=== PATIENT | female | born 1955 | race Two or more races ===

== ENCOUNTER 2024-01-15 13:22 | Inpatient (IN) | payer MEDICARE ==
[~2024-01-15] VITALS: Ht 157.5 cm; Wt 48.1 kg
[2024-01-15] MEDS ORDERED: FENTANYL PF 100MCG/2ML AMPUL ONE (13:54)
[2024-01-15] MEDS: FENTANYL PF 100MCG/2ML AMPUL IV ONE (13:57)
[2024-01-15 14:04] LABS: BASOPHILS % (AUTO) 0.3 % (0.0-2.0); EOSINOPHILS # (AUTO) 0.1 K/uL (0.0-0.7); EOSINOPHILS % (AUTO) 0.7 % (0.0-6.0); HEMATOCRIT 35 % (33-45); LYMPHOCYTES # (AUTO) 3.6 K/uL (0.8-4.8); LYMPHOCYTES % (AUTO) 33.5 % (20.0-44.0); MEAN CORPUSCULAR HEMOGLOBIN 32 PG (26.0-33.0); MEAN CORPUSCULAR HGB CONC 34 g/dl (31.0-36.0); MEAN CORPUSCULAR VOLUME 94 fL (82-100); MONOCYTES # (AUTO) 0.6 K/uL (0.1-1.30); MONOCYTES % (AUTO) 5.6 % (2.0-12.0); NEUTROPHILS # (AUTO) 6.4 K/uL (1.8-8.9); NEUTROPHILS % (AUTO) 59.9 % (43.0-81.0); PLATELET COUNT (AUTO) 276 K/uL (150-450); RED BLOOD CELL COUNT(AUTO) 3.77 MIL/uL (4.0-5.2); RED CELL DISTRIBUTION WIDTH 13.3 % (11.5-15.0); WHITE BLOOD COUNT (AUTO) 10.8 K/uL (4.3-11.0)
[2024-01-15 14:18] LABS: CALCIUM, SERUM 8.2 mg/dL (8.5-10.1); CARBON DIOXIDE 25 mmol/L (21-32); CHLORIDE 98 mmol/L (98-107); CREATININE 0.5 mg/dL (0.6-1.3); GLUCOSE 135 mg/dL (74-106); POTASSIUM 3.5 mmol/L (3.5-5.1); SODIUM SERUM 134 mmol/L (136-145); UREA NITROGEN, BLOOD 11 mg/dL (7-18)
[2024-01-15 14:23] LABS: INR 1.06 (0.91-1.10); PARTIAL THROMBOPLASTIN TIME 22.9 SEC (24.3-34.3); PROTHROMBIN TIME 11.2 SECS (9.2-11.1)
[2024-01-15] MEDS ORDERED: CALC-1143 PO (14:27)
[2024-01-15] MEDS ORDERED: NEBI2.5T5 PO (14:27)
[2024-01-15] MEDS ORDERED: MAGN500T2 PO (14:27)
[2024-01-15] MEDS ORDERED: MULT-594 PO (14:27)
[2024-01-15] MEDS ORDERED: ASPI-1169 PO (14:27)
[2024-01-15] MEDS ORDERED: ANAS1TAB50 NG (14:27)
[2024-01-15] MEDS ORDERED: LORA-259 PO (14:27)
[2024-01-15] MEDS ORDERED: THIA100T70 PO (14:27)
[2024-01-15] MEDS ORDERED: DENO60DI SQ (14:27)
[2024-01-15] MEDS ORDERED: ESCI10TA PO (14:27)
[2024-01-15] MEDS ORDERED: FISH1CAP PO (14:28)
[2024-01-15] MEDS ORDERED: CETI-194 PO (14:28)
[2024-01-15] MEDS ORDERED: VIVISCAL PO (14:28)
[2024-01-15] MEDS ORDERED: MELA5TAB PO (14:28)
[2024-01-15] MEDS ORDERED: METH500T4 PO (14:28)
[2024-01-15] MEDS ORDERED: CRAN200C5 PO (14:28)
[2024-01-15] MEDS ORDERED: ONDANSETRON HCL/PF 4 MG/2 ML VIAL ONE ×3 (14:46→16:50)
[2024-01-15] MEDS: ONDANSETRON HCL/PF - ER 4 MG/2 ML VIAL IV ONE ×3 (15:00→16:52)
[2024-01-15] MEDS ORDERED: MORPHINE SULFATE INJ 4 MG/ML DISP.SYRIN ONE (15:20)
[2024-01-15] MEDS: MORPHINE SULFATE INJ 2 MG/ML DISP.SYRIN IV ONE (15:28)
[2024-01-15] MEDS ORDERED: ACETAMINOPHEN 325 MG TABLET PO PRN (18:00)
[2024-01-15] MEDS ORDERED: MAGNESIUM HYDROXIDE 30 ML UDC PO PRN (18:00)
[2024-01-15] MEDS ORDERED: Z GUARD REMEDY 4 OZ OINT TP PRN (18:00)
[2024-01-15 18:15] VITALS: BP 138/63; TEMP 97.7; O2SAT 100
[2024-01-15] MEDS: IV NS 0.9% 1,000 ML IV PRN (19:54)
[2024-01-15 20:00] VITALS: BP 135/67; TEMP 97.9; O2SAT 100
[2024-01-15] MEDS: ONDANSETRON HCL/PF 4 MG/2 ML VIAL IVP PRN (21:59)
[2024-01-15] MEDS: HYDROMORPHONE 1 MG/1 ML DISP.SYRIN IV PRN (22:00)
[2024-01-16 03:00] VITALS: BP 118/67; TEMP 98; O2SAT 100
[2024-01-16 07:19] LABS: BASOPHILS % (AUTO) 0.1 % (0.0-2.0); HEMATOCRIT 35 % (33-45); HEMOGLOBIN 11.7 g/dL (11.5-14.8); LYMPHOCYTES # (AUTO) 1.1 K/uL (0.8-4.8); LYMPHOCYTES % (AUTO) 10.5 % (20.0-44.0); MEAN CORPUSCULAR HEMOGLOBIN 32 PG (26.0-33.0); MEAN CORPUSCULAR HGB CONC 34 g/dl (31.0-36.0); MEAN CORPUSCULAR VOLUME 94 fL (82-100); MONOCYTES # (AUTO) 0.7 K/uL (0.1-1.30); MONOCYTES % (AUTO) 6.8 % (2.0-12.0); NEUTROPHILS # (AUTO) 8.9 K/uL (1.8-8.9); NEUTROPHILS % (AUTO) 82.6 % (43.0-81.0); PLATELET COUNT (AUTO) 262 K/uL (150-450); RED BLOOD CELL COUNT(AUTO) 3.67 MIL/uL (4.0-5.2); RED CELL DISTRIBUTION WIDTH 13.1 % (11.5-15.0); WHITE BLOOD COUNT (AUTO) 10.8 K/uL (4.3-11.0)
[2024-01-16 07:22] LABS: CALCIUM, SERUM 8.3 mg/dL (8.5-10.1); CARBON DIOXIDE 20 mmol/L (21-32); CHLORIDE 101 mmol/L (98-107); CHOLESTEROL 205 mg/dL (<200); CREATININE 0.4 mg/dL (0.6-1.3); GLUCOSE 119 mg/dL (74-106); HDL CHOLESTEROL 99 mg/dL (40-60); LDL 94 mg/dL (0-99); MAGNESIUM 1.9 mg/dL (1.8-2.4); PHOSPHORUS 3.9 mg/dL (2.5-4.9); POTASSIUM 4.1 mmol/L (3.5-5.1); SODIUM SERUM 135 mmol/L (136-145); TRIGLYCERIDES 37 mg/dL (30-150); UREA NITROGEN, BLOOD 13 mg/dL (7-18)
[2024-01-16] MEDS: PANTOPRAZOLE 40 MG TABLET.DR PO SCH (07:26)
[2024-01-16 08:00] VITALS: BP 126/68; TEMP 99.4; O2SAT 99
[2024-01-16] MEDS ORDERED: LORAZEPAM 1 MG TABLET PO PRN (08:30)
[2024-01-16 08:42] LABS: IRON, SERUM 57 ug/dl (50-175); TOTAL IRON BINDING CAPACITY 306 ug/dl (250-450)
[2024-01-16 08:55] LABS: FERRITIN 69 ng/mL (8-388)
[2024-01-16] MEDS: ANASTROZOLE 1 MG TABLET PO SCH (08:58)
[2024-01-16] MEDS: ASPIRIN 81 MG TAB.CHEW PO SCH (08:58)
[2024-01-16] MEDS: MULTIVITAMINS,THERAGRAN 1 UDTAB TABLET PO SCH (08:59)
[2024-01-16] MEDS: MAGNESIUM OXIDE 400 MG TABLET PO SCH (08:59)
[2024-01-16] MEDS: METOPROLOL TARTRATE 25 MG TABLET PO SCH (08:59)
[2024-01-16] MEDS: ESCITALOPRAM OXALATE (10 MG) 10 MG TABLET PO SCH (08:59)
[2024-01-16] MEDS ORDERED: MAGNESIUM OXIDE 500 MG PO SCH (09:00)
[2024-01-16] MEDS ORDERED: DHA PO SCH (09:00)
[2024-01-16] MEDS ORDERED: EPA PO SCH (09:00)
[2024-01-16] MEDS ORDERED: FISH OIL PO SCH (09:00)
[2024-01-16] MEDS ORDERED: FLAX PO SCH (09:00)
[2024-01-16] MEDS ORDERED: [UNRECOGNIZED DRUG - OTHER] PO SCH (09:00)
[2024-01-16 16:00] VITALS: BP 127/61; TEMP 98.1; O2SAT 100
[2024-01-16] MEDS ORDERED: BUPIVACAINE 0.5 % PF 150 MG/30 ML VIAL ONE (16:30)
[2024-01-16] MEDS ORDERED: ROCURONIUM BROMIDE 50 MG/5 ML ONE (16:53)
[2024-01-16] MEDS ORDERED: FENTANYL PF 100MCG/2ML AMPUL ONE (16:53)
[2024-01-16] MEDS ORDERED: TRANEXAMIC ACID 1,000 MG/10 ML VIAL ONE (17:02)
[2024-01-16 20:00] VITALS: BP 102/59; TEMP 98.6; O2SAT 100
[2024-01-16] MEDS ORDERED: ANESTHESIA TRAY IN PYXIS 1 EA TRAY MC ONE (20:53)
[2024-01-17] MEDS: CEFAZOLIN 2 GM in IV D5W 100 ML IV SCH (00:33)
[2024-01-17 07:40] LABS: BASOPHILS % (AUTO) 0.1 % (0.0-2.0); HEMATOCRIT 24 % (33-45); HEMOGLOBIN 8.3 g/dL (11.5-14.8); LYMPHOCYTES # (AUTO) 1.4 K/uL (0.8-4.8); LYMPHOCYTES % (AUTO) 13.4 % (20.0-44.0); MEAN CORPUSCULAR HEMOGLOBIN 32 PG (26.0-33.0); MEAN CORPUSCULAR HGB CONC 35 g/dl (31.0-36.0); MEAN CORPUSCULAR VOLUME 93 fL (82-100); MONOCYTES # (AUTO) 1.2 K/uL (0.1-1.30); MONOCYTES % (AUTO) 11.8 % (2.0-12.0); NEUTROPHILS # (AUTO) 7.8 K/uL (1.8-8.9); NEUTROPHILS % (AUTO) 74.7 % (43.0-81.0); PLATELET COUNT (AUTO) 190 K/uL (150-450); RED BLOOD CELL COUNT(AUTO) 2.57 MIL/uL (4.0-5.2); RED CELL DISTRIBUTION WIDTH 13.4 % (11.5-15.0); WHITE BLOOD COUNT (AUTO) 10.4 K/uL (4.3-11.0)
[2024-01-17 08:00] VITALS: BP 106/50; TEMP 98.4; O2SAT 96
[2024-01-17 08:01] LABS: CALCIUM, SERUM 6.9 mg/dL (8.5-10.1); CARBON DIOXIDE 24 mmol/L (21-32); CHLORIDE 106 mmol/L (98-107); CREATININE 0.4 mg/dL (0.6-1.3); GLUCOSE 106 mg/dL (74-106); MAGNESIUM 2.2 mg/dL (1.8-2.4); PHOSPHORUS 2.8 mg/dL (2.5-4.9); POTASSIUM 3.8 mmol/L (3.5-5.1); SODIUM SERUM 137 mmol/L (136-145); UREA NITROGEN, BLOOD 14 mg/dL (7-18)
[2024-01-17] MEDS: ENOXAPARIN SODIUM 40 MG/0.4 ML DISP.SYRIN SQ SCH (09:00)
[2024-01-17 20:00] VITALS: BP 108/53; TEMP 98.4; TEMP 98.5; O2SAT 96; O2SAT 98
[2024-01-18] VITALS (8 sets, daily range): BP systolic 107–127; BP diastolic 51–93; TEMP 98–98.8; O2SAT 96–98
[2024-01-18 08:46] LABS: EOSINOPHILS % (AUTO) 0.1 % (0.0-6.0); MEAN CORPUSCULAR VOLUME 93 fL (82-100); NEUTROPHILS # (AUTO) 6.6 K/uL (1.8-8.9); RED CELL DISTRIBUTION WIDTH 13.2 % (11.5-15.0)
[2024-01-18 08:51] LABS: BASOPHILS % (AUTO) 0.3 % (0.0-2.0); LYMPHOCYTES # (AUTO) 2.3 K/uL (0.8-4.8); MEAN CORPUSCULAR HEMOGLOBIN 32 PG (26.0-33.0); MEAN CORPUSCULAR HGB CONC 35 g/dl (31.0-36.0); NEUTROPHILS % (AUTO) 66.6 % (43.0-81.0); PLATELET COUNT (AUTO) 162 K/uL (150-450); RED BLOOD CELL COUNT(AUTO) 2.34 MIL/uL (4.0-5.2); WHITE BLOOD COUNT (AUTO) 9.9 K/uL (4.3-11.0)
[2024-01-18 08:54] LABS: HEMATOCRIT 22 % (33-45); HEMOGLOBIN 7.5 g/dL (11.5-14.8)
[2024-01-18 20:18] LABS: BASOPHILS % (AUTO) 0.2 % (0.0-2.0); EOSINOPHILS % (AUTO) 0.2 % (0.0-6.0); HEMATOCRIT 25 % (33-45); HEMOGLOBIN 8.6 g/dL (11.5-14.8); LYMPHOCYTES # (AUTO) 2.6 K/uL (0.8-4.8); LYMPHOCYTES % (AUTO) 26.7 % (20.0-44.0); MEAN CORPUSCULAR HEMOGLOBIN 31 PG (26.0-33.0); MEAN CORPUSCULAR HGB CONC 35 g/dl (31.0-36.0); MEAN CORPUSCULAR VOLUME 89 fL (82-100); NEUTROPHILS % (AUTO) 62.9 % (43.0-81.0); PLATELET COUNT (AUTO) 145 K/uL (150-450); RED BLOOD CELL COUNT(AUTO) 2.79 MIL/uL (4.0-5.2); RED CELL DISTRIBUTION WIDTH 14.9 % (11.5-15.0); WHITE BLOOD COUNT (AUTO) 9.6 K/uL (4.3-11.0)
[2024-01-19 07:30] VITALS: BP 121/57; TEMP 98.4; O2SAT 97
[2024-01-19 16:00] VITALS: BP 113/54; TEMP 98.8; O2SAT 97
[2024-01-19 20:00] VITALS: BP 110/59; TEMP 98.6; O2SAT 94
[2024-01-20 08:30] VITALS: BP 133/71; TEMP 98.8; O2SAT 97
[2024-01-20 09:38] VITALS: BP 133/71
[2024-01-20 14:41] LABS: APPEARANCE,URINE SLIGHTLY CLOUDY (CLEAR); BILIRUBIN,URINE NEGATIVE (NEGATIVE); BLOOD, URINE 3+ Ery/uL (NEGATIVE); COLOR,URINE YELLOW (YELLOW); KETONES,URINE 1+ mg/dL (NEGATIVE); LEUKOCYTE ESTERASE ,URINE 2+ (NEGATIVE); NITRITE, URINE NEGATIVE (NEGATIVE); PROTEIN,URINE 1+ mg/dl (NEGATIVE); UGLUCOSE NEGATIVE (NEGATIVE); UROBILINOGEN,URINE 0.2 EU/dL (0.2)
[2024-01-20 15:44] LABS: RBC,URINE 21-50 /HPF (0-2)
[2024-01-20 15:45] LABS: ADD URINE CULTURE YES; BACTERIA,URINE Moderate /HPF (None Seen); SQUAMOUS EPITHELIAL CELL,UR Few /HPF (None Seen); WBC,URINE 51-80 /HPF (0-3)
== END 2024-01-20 18:34 | DRG 481 ==
LOC: ER 13:37 → MED 17:16
PROVIDERS: ADMIT Nurse Practitioner Family; ATTEND Internal Medicine
PROC: 0QSC06Z Reposition Left Lower Femur with Intramedullary Internal Fixation Device, Open Approach (ICD-10-PCS; principal; 2024-01-16)
PROC: 30233N1 Transfusion of Nonautologous Red Blood Cells into Peripheral Vein, Percutaneous Approach (ICD-10-PCS; 2024-01-18)
DX: M80.852A Other osteoporosis with current pathological fracture, left femur, initial encounter for fracture (principal); E87.1 Hypo-osmolality and hyponatremia; W18.2XXA Fall in (into) shower or empty bathtub, initial encounter; K21.9 Gastro-esophageal reflux disease without esophagitis; F41.9 Anxiety disorder, unspecified; F32.A Depression, unspecified; Z85.3 Personal history of malignant neoplasm of breast; Y93.E1 Activity, personal bathing and showering; Y92.002 Bathroom of unspecified non-institutional (private) residence as the place of occurrence of the external cause; Z88.2 Allergy status to sulfonamides; I34.1 Nonrheumatic mitral (valve) prolapse; Z98.890 Other specified postprocedural states; D64.9 Anemia, unspecified
CPT/HCPCS: 36415; 71045-TC; 71100-TC; 72170-TC; 72192-TC; 73502; 73552; 80048-TC; 80061-TC; 81001; 82728-TC; 83540-TC; 83735-TC; 84100-TC; 85025-TC; 85730-TC; 86850-TC; 87081-TC; 87086-TC; 93307-TC; 97110-TC; 97116-TC; 97530-TC; 97535-TC; A4217; A6209; A6253; C1713; G0378; J0690; J1100; J1171; J1650; J2270; J2405; J2704; J2765; J3010; J3490; J7030; J7050; J7060; P9016